=== PATIENT | female | born 1975 | race African-American/Black ===

== ENCOUNTER 2020-09-17 09:38 | Emergency (ER) | payer OTHER ==
[~2020-09-17] VITALS: Ht 162.6 cm; Wt 63.5 kg
[2020-09-17 10:11] VITALS: BP 167/102
--- NOTE | 2020-09-17 11:10 | NUR ---
COVID SWAB SENT TO LAB. Patient discharged to home in stable condition. Written and verbal after care instructions given. Patient verbalizes understanding of instruction.
== END 2020-09-17 11:11 | disposition home or self-care (01) ==
LOC: ER 09:45
DX: Z20.828 Contact with and (suspected) exposure to other viral communicable diseases (principal)
CPT/HCPCS: 99283; C9803; U0003